=== PATIENT | male | born 1965 | race Caucasian/White ===

== ENCOUNTER 2019-03-02 18:29 | Emergency (ER) | payer MEDICAID ==
[~2019-03-02] VITALS: Ht 180.3 cm; Wt 70.5 kg
[2019-03-02 18:33] VITALS: Ht 180.3 cm; Wt 70.5 kg
[2019-03-02] MEDS ORDERED: NAVANE5 MG PO ×2 (18:35→18:36)
[2019-03-02] MEDS ORDERED: BENZTROPINE MESY2 MG PO (18:35)
[2019-03-02] MEDS ORDERED: VIBRAMYCIN 100100 MG PO (21:27)
[2019-03-02 21:36] VITALS: BP 132/77
== END 2019-03-02 21:36 | disposition home or self-care (01) ==
LOC: D.ER 18:29
DX: S70.362A Insect bite (nonvenomous), left thigh, initial encounter (principal); W57.XXXA Bitten or stung by nonvenomous insect and other nonvenomous arthropods, initial encounter; Y93.89 Activity, other specified; Y92.89 Other specified places as the place of occurrence of the external cause

== ENCOUNTER 2019-03-03 | Emergency (ER) | payer MEDICARE ==
[~2019-03-03] VITALS: Ht 180.3 cm; Wt 70.5 kg
[~2019-03-03] MED LIST: BENZTROPINE MESY2 MG PO; NAVANE5 MG PO; VIBRAMYCIN 100100 MG PO
[2019-03-03 00:17] VITALS: Ht 180.3 cm; Wt 70.5 kg
[2019-03-03 04:52] VITALS: BP 126/62
== END 2019-03-03 04:53 | disposition home or self-care (01) ==
LOC: D.ER
DX: G44.209 Tension-type headache, unspecified, not intractable (principal); Z59.0 Homelessness